=== PATIENT | male | born 1980 | race Caucasian/White ===

== ENCOUNTER 2019-10-14 06:04 | Emergency (ER) | payer OTHER ==
[~2019-10-14] VITALS: Ht 170.2 cm; Wt 104.3 kg
[2019-10-14] MEDS ORDERED: AUGMENTIN 500-1 EACH PO (06:26)
[2019-10-14] MEDS ORDERED: HYDROCODON-ACE1 EAC7 PO (06:26)
[2019-10-14] MEDS ORDERED: IBUPROFEN 600600 M1 PO (06:26)
[2019-10-14] MEDS ORDERED: Magic Mouthwash SW&SWALLOW (06:26)
[2019-10-14 06:52] VITALS: BP 151/95
== END 2019-10-14 06:52 | disposition home or self-care (01) ==
LOC: M.ERS 06:04
DX: J36 Peritonsillar abscess (principal); J45.909 Unspecified asthma, uncomplicated

== ENCOUNTER 2021-04-28 01:04 | Emergency (ER) | payer OTHER ==
[~2021-04-28] VITALS: Ht 170.2 cm; Wt 108.9 kg
[~2021-04-28 01:04] MED LIST: AUGMENTIN 500-1 EACH PO; HYDROCODON-ACE1 EAC7 PO; IBUPROFEN 600600 M1 PO; Magic Mouthwash SW&SWALLOW
[2021-04-28] MEDS ORDERED: HYDROCODON-ACE1 EAC7 PO (02:17)
[2021-04-28] MEDS ORDERED: DOXYCYCLINE 10100 MG PO (02:17)
[2021-04-28] MEDS ORDERED: IBUPROFEN 800800 MG PO (02:17)
[2021-04-28 02:38] VITALS: BP 145/98
== END 2021-04-28 02:39 | disposition home or self-care (01) ==
LOC: M.ERS 01:04
DX: L02.415 Cutaneous abscess of right lower limb (principal); J45.909 Unspecified asthma, uncomplicated; F17.210 Nicotine dependence, cigarettes, uncomplicated